=== PATIENT | female | born 1980 | race Caucasian/White ===

== ENCOUNTER → 2016-12-13 | Outpatient (CLI) | payer OTHER | LOC: FIMAGING 10:40 | PROVIDERS: ATTEND Family Medicine | DX: Z12.39 Encounter for other screening for malignant neoplasm of breast (principal); N63 Unspecified lump in breast | CPT/HCPCS: G0204 ==

== ENCOUNTER 2017-05-08 07:09 | Day surgery (SDC) | payer OTHER ==
--- NOTE | 2017-05-04 09:09 | PDGENHP ---
History and Physical - Chief Complaint Left Hip Pain - History of Present Illness Diagnosis: 1. 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 moderatively active female who I have had the pleasure to consult on today. I have enjoyed meeting her. She lives in [place]. 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 She is single with no children. Kathy enjoys running (previous 3x/week), hiking, cycling. Kathy'spresents with L hip pain for the past three years, pain started when she was living in [place]. She was initally diagnosed with weak gluts, saw an orthopedist and she started in physical therapy. She left hip pain started several years ago, with no previous complaints and with anterior superior hip pain without groin pain. no recalled trauma or injury. ~Kathy does not have a known history of hip dysplasia. Presentation today is of anterolateral left hip pain. The hip does not wake her at night and does click and catch on her. Sitting can be uncomfortable for long periods her. Kathy does report suffering from lower back pain episodes. Kathy has participated in physical therapy and has tried other conservative measures including dry needling, chiropractic treatments and massage therapy. She has not received sufficient symptomatic improvement. Kathy has not utilized medication for pain management, including NSAID. Kathy has used medication for ~days. Kathy occasional issues with the right hip. Kathy understands that she has a hip and pelvis problem which should be researched and wishes to get a better understanding of her hip status, followed by an establishment of a treatment strategy, hoping she would be able to get back to her well being active life. History:~ Past medical history: None which is relevant Relevant familial history: None which is relevant Past surgical history: None Kathy has never received general anesthesia. I have reviewed, verified and agree with the past medical, surgical, family and social history. Current Medications:~currently has no medications in their medication list. ALLERGIES:~is allergic to banana and roseanna. Objective:~ Physical Examination: Kathy is 5'' feet 11 inches tall and weighs 150 Lbs. Kathy is AAO x3; she is well-nourished, in NAD. Skin is warm and dry. Breathing is non-labored. CV with RRR by pulse. Abdomen is soft, NTND. Currently, she walks with a abnormal antalgic gait gait. She has no leg length discrepancy and presents with mild signs of joint laxity [place] 4. She is fit looking. Trendelenburg sign is negative and proprioception is normal, both sides. Lower spine examination is negative for sciatic or femoral nerve irritation with negative SLR &~femoral stretch tests. Range of motion of the spine is normal for flexion, extension, and rotations, with no associated pain. SIJs examination is normal with normal ANDREW in relation and local tenderness. Strength, Sensation and pulses are normal - bilaterally Ankles and knees exams are normal and no mal-alignment is evident. Hip ROM (degrees): ER At 90~hip FL IR At 90 hip FL IR Neutral hip ER Neutral hip AB AD FL EX R 50 40 50 25 45 10 100 5 L 45-50 45 70 15 50 15 100 5 Specific hip and pelvis tests: Quadrant ANDREW Roll Add. Longus R ++ Negative Negative + L +++ +++ Negative + Glut. Med ITB Pos. Imp R Negative Negative Negative L Negative Negative Negative Squeeze test measured normal Bony Symphysis pubis is pain free to touch while concentric activity of the rectus abdominis, does produce pain at its insertion. Ilio Psos specific tests are negative for pain during cycling for both hips and remarkable for left non painful snap Greater trochanteric burse is pain free on both hips. Piriformis tests: FAIR is negative, with no local signs of neuritis related to sciatic nerve. Thigh circumference is symmetric with no evidence for muscle atrophy on both sides. Hamstrings tests are negative functional contraction and negative tendinopathy Imaging: Radiology studies which I have personally reviewed, analyzed and measured are below: XR: AP of the hip and pelvis: Performed in a good technique Coccyx to pubic symphysis distance 1.2 cm. 5 degrees cephal Specific measurements show: Alpha angle for Cam lesion on lateral views: Right 63 Left 59 NSA ~ Lat. Cam LCE Lat. Pincer C.Over sign Sharp's angle Head Coverage % Sourcil Angle ~ ATDmm R 144 + 21 - - 46 73 11 N L 142 + 23 - - 49 79 14 N [place] Lines are preserved. No Pathological signs are seen in the Symphysis Pubis. No Pathological signs are seen at the Ischial tuberosity. Pos. wall sign Sup. Lat. OA Joint Space-WBZ Joint Space-Medial NAD R Negative Negative 4.9 mm 4.3 mm 20 mm L Negative Negative 4.6 mm 3.8 mm 25 mm Sclerosis~ Dysplasia~ Cysts~ ISS Comments R Negative ++ Negative Negative~ L Negative ++ Negative Negative~ Impression and plan: Kathy is a 37 y.o. active female suffering from symptomatic left hip pain due to Left Borderline Hip Dyplasia and Cam type KERON causing significant disability to her and altering her sport and life activities. Physical examination, imaging, and her story correspond with the diagnosis mentioned above. I have explained the diagnosis and its significance to Kathy and we have discussed the various possible treatment options and their implications with her. These include proceeding with conservative treatment while continuing to modify her activities to avoid aggravating the hip further, resuming anti pain medications or intra articular injections (when needed) which can give temporary relief, a hip arthroscopy aiming to address the above pathology and a hip arthroscopy followed by WISAM (periacetabular osteotomy) aiming to address the above pathology - (this option will be based also on CT/MRI results). We discussed the relevance of these hip preservation procedures with regard to slowing~or preventing the need for her~to have a total hip replacement in the future. She~understands that her options include having one, both, or neither of the recommended surgeries. she~also understands that the timing of surgery plays a role in the continued degeneration of her~hip, and that waiting may put her~at risk for functional decline, including further labral tearing and additional cartilage damage, both of which are irreversible. We had a lengthy discussion about surgical options, including how arthroscopy will correct the labral tear that is causing Kathy significant pain due to the nature of this highly innervated structure. However, the dysplasia is only correctable with WISAM procedure. We explained how this surgery is an open procedure, and though patients tend to do well in the long-term, it involves significant pain in the first 2-4 weeks post-op and a rather lengthy rehab. 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 Kathy understands that she will be weight-bearing post-operatively. We discussed the surgical option in depth and explained that we will need a CT to be more conclusive about our findings. Surgical intervention to repair the torn labrum will offer symptomatic relief for an indeterminate amount of time. However, to fix the pathology associated with hip dysplasia, a WISAM to correct the alignment of the hip socket may be warranted. Kathy will review the info presented. CT with 3D recon will be done in order to evaluate femoral torsion and to pre plan an accurate and optimal volume and location of bony resection. Prior to surgery, we will obtain an MR dGEMRIC in order to evaluate the cartilage quality. Kathy is happy with this plan. I have also supplied her with handouts, outlining the expected surgical treatment and rehab involved. I wish Kathy all the best, ~Dr Beyer [email or web address] History Information - Allergies/Home Medication List Allergies/Adverse Reactions: avocado Allergy (Verified 04/28/16 15:14) banana Allergy (Verified 03/31/16 13:32) roseanna Allergy (Verified 03/31/16 13:32) AVACADO Allergy (Uncoded 03/31/16 13:32) I have personally reviewed and updated: medical history - Social History Smoking Status: Never smoked Review of Systems Review of Systems: Physical Exam Physical Exam:
[2017-05-08] MEDS ORDERED: ACETAMINOPHEN 500 MG TAB PO ONE ×2 (07:42→11:00)
[2017-05-08] MEDS ORDERED: ceFAZolin 2 GM/SWFI 2 GM/20 ML SYR IVP ONE (07:42)
[2017-05-08] MEDS ORDERED: PREGABALIN 150 MG CAP PO ONE ×2 (07:42→11:00)
[2017-05-08] MEDS ORDERED: LR 1,000 ML IV ONE (07:43)
[2017-05-08] MEDS ORDERED: LIDOCAINE 1% 2 ML INJ ID PRN (07:43)
[2017-05-08] MEDS ORDERED: MIDAZOLAM 2 MG/2 ML VIAL IVP ONE ×2 (08:25→11:00)
[2017-05-08] MEDS ORDERED: SCOPOLAMINE HYDROBROMIDE 1 MG/3 DAYS PATCH TD SCH (08:30)
--- NOTE | 2017-05-08 08:30 | PDANEPAE ---
ANE History of Present Illness Hardware removal ANE Past Medical History - Cardiovascular History Hx Hypertension: No Hx Arrhythmias: No Hx Chest Pain: No Hx Coronary Artery / Peripheral Vascular Disease: No Hx CHF / Valvular Disease: No Hx Palpitations: No - Pulmonary History Hx COPD: No Hx Asthma/Reactive Airway Disease: No Hx Recent Upper Respiratory Infection: No Hx Oxygen in Use at Home: No Hx Sleep Apnea: No Sleep Apnea Screening Result - Last Documented: Negative Pulmonary History Comment: PNEUMONIA 10/2015 - Neurologic History Hx Cerebrovascular Accident: No Hx Seizures: No Hx Dementia: No - Endocrine History Hx Diabetes: No - Renal History Hx Renal Disorders: No - Liver History Hx Hepatic Disorders: No - Neurological & Psychiatric Hx Hx Neurological and Psychiatric Disorders: No - Cancer History Hx Cancer: No - Congenital Disorder History Hx Congenital Disorders: No Congenital History Comment: SHAPE OF HIP SOCKET - GI History Hx Gastrointestinal Disorders: Yes Gastrointestinal History Comment: SENSITIVE STOMACH AT TIMES,EVEN WITH THE SAME FOODS WILL NOT SIT WELL. - Other Health History Other Health History: none - Chronic Pain History Chronic Pain: Yes (LT HIP) - Surgical History Prior Surgeries: LT HIP SCOPE 04/25/2016 ANE Review of Systems Review of systems is: negative Review of Systems: - Exercise capacity METS (RN): 4 METS ANE Patient History - Allergies Allergies/Adverse Reactions: avocado Allergy (Verified 04/28/16 15:14) banana Allergy (Verified 03/31/16 13:32) roseanna Allergy (Verified 03/31/16 13:32) AVACADO Allergy (Uncoded 03/31/16 13:32) - NPO status NPO Since - Liquids (Date): 05/07/17 NPO Since - Liquids (Time): 20:30 NPO Since - Solids (Date): 05/07/17 NPO Since - Solids (Time): 18:00 - Anes Hx Anes Hx: post operative nausea - Smoking Hx Smoking Status: Never smoked - Alcohol Use Alcohol Use: Rarely - Family Anes Hx Family Anes Hx: none Family Hx Anesthesia Complications: NEG ANE Labs/Vital Signs - Vital Signs Blood Pressure: 116/82 Heart Rate: 79 Respiratory Rate: 16 O2 Sat (%): 98 Height: 182.88 cm Weight: 65.771 kg ANE Physical Exam - Airway Neck exam: FROM Mallampati Score: Class 1 Mouth exam: normal dental/mouth exam - Pulmonary Pulmonary: no respiratory distress, clear to auscultation - Cardiovascular Cardiovascular: regular rate and rhythym, no murmur, rub, or gallop - ASA Status ASA Status: I ANE Anesthesia Plan Anesthesia Plan: GA w LMA
[2017-05-08] MEDS ORDERED: LIDOCAINE 1% 300 MG/30 ML SDV ONE (10:30)
[2017-05-08] MEDS ORDERED: fentaNYL 100 MCG/2 ML INJ ONE ×3 (10:55→11:20)
[2017-05-08] MEDS ORDERED: PROPOFOL/EMULSION 500 MG/50 ML BOTTLE IV ONE (10:55)
[2017-05-08] MEDS ORDERED: LIDOCAINE 2% 5 ML SDV ONE (10:56)
[2017-05-08] MEDS ORDERED: GLYCOPYRROLATE 0.2 MG/1 ML VIAL ONE (11:02)
[2017-05-08] MEDS ORDERED: ONDANSETRON 4 MG/2 ML VIAL ONE (11:02)
[2017-05-08] MEDS ORDERED: DEXAMETHASONE 4 MG/ML VIAL ONE (11:02)
[2017-05-08] MEDS ORDERED: ceFAZolin 1 GM VIAL ONE ×2 (11:09)
[2017-05-08] MEDS ORDERED: PROPOFOL 200 MG/20 ML VIAL ONE ×2 (11:38→13:02)
[2017-05-08] MEDS ORDERED: HYDROCODONE/APAP 5/325 TAB PO PRN (12:19)
[2017-05-08] MEDS ORDERED: PROMETHAZINE HCL 25 MG/ML INJ IVP PRN (12:19)
[2017-05-08] MEDS ORDERED: NS 500 ML IV PRN (12:19)
[2017-05-08] MEDS ORDERED: ONDANSETRON 4 MG/2 ML VIAL IVP PRN (12:19)
[2017-05-08] MEDS ORDERED: LR 500 ML IV PRN (12:19)
[2017-05-08] MEDS ORDERED: fentaNYL 100 MCG/2 ML INJ IVP PRN (12:19)
[2017-05-08] MEDS ORDERED: NALOXONE HCL 0.4 MG/ML INJ IVP PRN (12:19)
[2017-05-08] MEDS ORDERED: OXYCODONE/APAP 5/325 TAB PO PRN (12:19)
[2017-05-08] MEDS ORDERED: KETOROLAC 30 MG/1 ML SDV ONE (12:48)
[2017-05-08 14:18] VITALS: TEMP 98.1
[2017-05-08] MEDS ORDERED: MEPERIDINE 25 MG/ML SYR ONE (14:53)
[2017-05-08 15:03] VITALS: RESP 14
--- NOTE | 2017-05-08 15:13 | POSTANESTH ---
Post Anesthetic Evaluation Cardiovascular Status: Normal, Stable Respiratory Status: Normal, Stable Level of Consciousness/Mental Status: Can Participate in Eval Pain Control: Adequate, Prn Tx Ordered Nausea/Vomiting Control: Adequate, Prn Tx Ordered Complications Possibly Related to Anesthesia: None Noted
[2017-05-08 15:32] VITALS: PULSE 97
[2017-05-08 16:15] VITALS: BP 102/86; O2SAT 95
[2017-05-11] MEDS ORDERED: PATCH REMOVAL 1 EA PATCH TD SCH (08:27)
== END 2017-05-08 16:41 | disposition home or self-care (01) ==
LOC: FSGY 07:09
PROVIDERS: ATTEND Orthopaedic Surgery Sports Medicine
DX: M76.892 Other specified enthesopathies of left lower limb, excluding foot (principal); Z47.2 Encounter for removal of internal fixation device
CPT/HCPCS: C1713; J0690; J1100; J1885; J2250; J2405; J2704; J3010